=== PATIENT | female | born 1965 | race Caucasian/White ===

== ENCOUNTER 2017-05-31 10:41 | Inpatient (IN) | payer OTHER ==
[2017-05-31 11:24] VITALS: BMI 24.8
--- NOTE | 2017-05-31 14:46 | HP ---
CIWA Score - CIWA Score Nausea/Vomitin Muscle Tremors: 3 Anxiety: 3 Agitation: 3 Paroxysmal Sweats: 2 Orientation: 0-Oriented Tacttile Disturbances: 2-Mild Itch/Numbness/Burn Auditory Disturbances: 2-Mild Harshness/Frighten Visual Disturbances: 2-Mild Sensitivity Headache: 2-Mild CIWA-Ar Total Score: 22 Admission ROS BHS - HPI Chief Complaint: i need help to stop drinking alcohol,klonopin,hero in,mmtp 50 mgs/day,last medicated today manic depressive bipolar disorder mass of right lung ,had biopsy done in [facility],follow up with [facility] nicotine dependence multiple admissions in detox,last detox 03/11/16 to 03/26/16 longest period of sobriety 6 months Allergies/Adverse Reactions: Allergies Allergy/AdvReac Type Severity Reaction Status Date / Time No Known Allergies Allergy Verified 05/31/17 16:09 History of Present Illness: this 52 years old female with alcohol,klonopin dependence,heroin abused,mmtp 50 mgs/day for detox as mentioned above need help for detox Exam Limitations: No Limitations - Ebola screening Have you traveled outside of the country in the last 21 days: No Have you had contact with anyone from an Ebola affected area: No Have you been sick,other than usual withdrawal symptoms: No Do you have a fever: No - Review of Systems Constitutional: Loss of Appetite, Night Sweats, Changes in sleep, Weakness EENT: reports: No Symptoms Reported, Nose Congestion (copd mass in right upper lobe of right lung since 11/24 had biopoy and follow up with pmd dr mares in [facility]) Respiratory: reports: Other (copd on albuterol inhaler mass of right lung in right upper lobe had biopsy and follow up with [facility]) Cardiac: reports: No Symptoms Reported GI: reports: Diarrhea, Nausea, Poor Appetite, Abdominal cramping : reports: No Symptoms Reported Musculoskeletal: reports: Back Pain, Muscle Pain Integumentary: reports: Dryness Neuro: reports: Headache, Tremors Endocrine: reports: No Symptoms Reported Hematology: reports: No Symptoms Reported Psychiatric: reports: No Sypmtoms Reported, Judgement Intact, Mood/Affect Appropiate, other (bipolar disoder) Patient History - Patient Medical History Hx Anemia: No Hx Asthma: No Hx Chronic Obstructive Pulmonary Disease (COPD): Yes (on albuterol inhaler) Hx Cancer: No Hx Cardiac Disorders: No Hx Congestive Heart Failure: No Hx Hypertension: No Hx Hypercholesterolemia: No Hx Pacemaker: No HX Cerebrovascular Accident: No Hx Seizures: No Hx Dementia: No Hx Diabetes: No Hx Gastrointestinal Disorders: No Hx Liver Disease: No Hx Genitourinary Disorders: No Hx Sexually Transmitted Disorders: No Hx Renal Disease (ESRD): No Hx Thyroid Disease: No Hx Human Immunodeficiency Virus (HIV): No (negative last 05/24/17) Hx Hepatitis C: Yes (follow up with pmd) Hx Depression: Yes Hx Suicide Attempt: Yes (CUT LEFT WRIST,overdose 2002; denies any S/H ideation) Hx Bipolar Disorder: Yes Hx Schizophrenia: No Other Medical History: no suicidal,no homicidal - Patient Surgical History Past Surgical History: Yes Hx Neurologic Surgery: No Hx Cataract Extraction: No Hx Cardiac Surgery: No Hx Lung Surgery: No Hx Breast Surgery: No Hx Breast Biopsy: No Hx Abdominal Surgery: No Hx Appendectomy: No Hx Cholecystectomy: No Hx Genitourinary Surgery: No Hx Section: No Hx Orthopedic Surgery: Yes (torn minuscus left knee/3 disc herniation) Other Surgical History: SURGERY OF NOSE FOR FX AT AGE OF 4 YEAR Anesthesia Reaction: Yes - PPD History Previous Implant?: Yes Documented Results: Negative w/o proof Date: 07/01/15 Results: 0mm PPD to be Administered?: Yes - Reproductive History Patient is a Female of Child Bearing Age (11 -55 yrs old): Yes Last Menstrual Period: 07/15/16 Patient : No - Smoking Cessation Smoking history: Current every day smoker Have you smoked in the past 12 months: Yes Aproximately how many cigarettes per day: 6 Cigars Per Day: 0 Hx Chewing Tobacco Use: No Initiated information on smoking cessation: Yes 'Breaking Loose' booklet given: 05/31/17 - Substance & Tx. History Hx Alcohol Use: Yes Substance Use Type: Heroin, Tranquilizers Hx Substance Use Treatment: Yes ([facility] 06/21/16 to 03/26/16) - Substances Abused Alcohol Route: Oral Frequency: Daily Amount used: 1 paint of vodka/2 of 16 ozs of beer Age of first use: 13 Date of Last Use: 05/31/17 Benzodiazepine (Klonopin) Route: Oral Frequency: Daily Amount used: 2 mgs Age of first use: 49 Date of Last Use: 05/31/17 Heroin Route: Injection Frequency: 1-2 times per week Amount used: 2 bags Age of first use: 30 Date of Last Use: 05/30/17 Family Disease History - Family Disease History Family Disease History: Other: Father (DSA), Mother (DSA) Admission Physical Exam S - Vital Signs Vital Signs: Vital Signs - 24 hr 05/31/17 11:22 Temperature 98.6 F Pulse Rate 62 Respiratory 18 Rate Blood Pressure 103/67 - Physical General Appearance: Yes: Moderate Distress, Tremorous, Irritable, Sweating, Anxious HEENTM: Yes: Normal ENT Inspection, KATHYA, Pharynx Normal, Tm's normal Respiratory: Yes: Lungs Clear, Normal Breath Sounds, No Respiratory Distress Neck: Yes: Within Normal Limits, Supple, Trachea in good position Breast: Yes: Breast Exam Deferred Cardiology: Yes: Within Normal Limits, Regular Rhythm, Regular Rate, S1, S2 Abdominal: Yes: Within Normal Limits, Normal Bowel Sounds, Non Tender, Flat, Soft Genitourinary: Yes: Within Normal Limits Back: Yes: Within Normal Limits, Normal Inspection, Muscle Spasm Musculoskeletal: Yes: Back pain, Muscle Pain Extremities: Yes: Within Normal Limits, Normal Range of Motion, Tremors Neurological: Yes: 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 intact, Fully Oriented, Alert, Motor Strength 5/5 Integumentary: Yes: Dry Lymphatic: Yes: Within Normal Limits - Diagnostic (1) Alcohol dependence with uncomplicated withdrawal Current Visit: No Status: Acute (2) Uncomplicated sedative, hypnotic, or anxiolytic withdrawal Current Visit: Yes Status: Acute (3) Opioid dependence Current Visit: No Status: Acute (4) Methadone maintenance therapy patient Current Visit: Yes Status: Acute (5) COPD (chronic obstructive pulmonary disease) Current Visit: Yes Status: Acute (6) Hepatitis C Current Visit: Yes Status: Acute (7) CELLULITIS OF RIGHT FOREARM Current Visit: No Status: Acute (8) Low back pain Current Visit: No Status: Chronic Qualifiers: Chronicity: chronic Back pain laterality: unspecified Sciatica presence: without sciatica Qualified Code(s): M54.5 - Low back pain (9) Nicotine dependence Current Visit: No Status: Chronic Qualifiers: Nicotine product type: cigarettes Substance use status: uncomplicated Qualified Code(s): F17.210 - Nicotine dependence, cigarettes, uncomplicated (10) Cellulitis of both feet Current Visit: Yes Status: Acute (11) Derangement of medial meniscus of left knee due to old injury Current Visit: Yes Status: Acute (12) Mass of right lung Current Visit: Yes Status: Acute (13) Bipolar disorder Current Visit: No Status: Suspected Cleared for Admission [facility] - Detox or Rehab [facility] Level of Care: Medically Managed Detox Regimen/Protocol: Librium [facility] Breath Alcohol Content Breath Alcohol Content: 0.34 Urine Pregancy Test - Result Urine Test Results: Negative- NO Line Present Urine Drug Screen - Results Drug Screen Negative: No Urine Drug Screen Results: BEATRIZ-Cocaine, OPI-Opiates, BZO-Benzodiazepines, MTD- Methadone
[2017-05-31] MEDS ORDERED: MAGNESIUM HYDROX 2400MG/30ML ORAL SUSPENSION 30 ML CUP PO PRN (15:17)
[2017-05-31] MEDS ORDERED: LOPERAMIDE HCL 2 MG CAPSULE PO PRN (15:17)
[2017-05-31] MEDS ORDERED: chlordiazePOXIDE HCL 25 MG CAPSULE PO PRN (15:17)
[2017-05-31] MEDS ORDERED: P-EPHED 60MG/TRIPROLIDI 2.5MG TABLET PO PRN (15:17)
[2017-05-31] MEDS ORDERED: MAG HYDROX/AL HYDROX/SIMETH 30 ML UNIT-DOSE CUP PO PRN (15:17)
[2017-05-31] MEDS ORDERED: MAGNESIUM CITRATE 300 ML BOTTLE PO PRN (15:17)
[2017-05-31] MEDS ORDERED: chlordiazePOXIDE HCL 25 MG CAPSULE PO ONE (15:17)
[2017-05-31] MEDS ORDERED: guaiFENesin/D-METHORPHAN HB 10 ML UNIT-DOSE CUPS PO PRN (15:17)
[2017-05-31] MEDS ORDERED: MENTHOL/PHENOL 1 EACH UD MM PRN (15:17)
[2017-05-31] MEDS ORDERED: ACETAMINOPHEN 325 MG TABLET (FP) PO PRN (15:17)
[2017-05-31] MEDS ORDERED: ALBUTEROL SO4 6.7 GM HFA INHALER IH PRN (15:23)
[2017-05-31] MEDS: chlordiazePOXIDE HCL 25 MG CAPSULE PO SCH ×2 (17:44→22:34)
[2017-05-31] MEDS: NICOTINE 14 MG/24 HOURS TOPICAL PATCH TD SCH (17:59)
[2017-05-31 20:16] LABS: URINE APPEARANCE SLCLOUDY; URINE BILIRUBIN NEGATIVE (NEGATIVE); URINE BLOOD NEGATIVE (NEGATIVE); URINE COLOR YELLOW; URINE GLUCOSE (UA) NEGATIVE (NEGATIVE); URINE KETONE NEGATIVE (NEGATIVE); URINE NITRITE NEGATIVE (NEGATIVE); URINE PROTEIN NEGATIVE (NEGATIVE); URINE UROBILINOGEN NEGATIVE mg/dL (0.2-1.0)
[2017-05-31 20:17] LABS: URINE LEUK ESTERASE 3+ (NEGATIVE)
[2017-05-31 21:15] LABS: URINE BACTERIA RARE /hpf (NONE SEEN); URINE MUCUS RARE; URINE RBC 2 /hpf (0-3); URINE WBC 4 /hpf (3-5)
[2017-05-31] MEDS: PATIENT'S OWN MEDICATION (NON-FORMULARY) (Clindamycin [Cleocin -] 300 MG) PO SCH (22:34)
[2017-05-31] MEDS: THIAMINE HCL 100 MG TABLET (FP) PO SCH (22:34)
[2017-06-01] MEDS: METHADONE HCL 10 MG TABLET PO SCH (06:12)
[2017-06-01] MEDS: chlordiazePOXIDE HCL 25 MG CAPSULE PO SCH ×4 (06:12→22:32)
[2017-06-01] MEDS: PATIENT'S OWN MEDICATION (NON-FORMULARY) (Clindamycin [Cleocin -] 300 MG) PO SCH ×3 (06:13→22:32)
[2017-06-01 09:41] LABS: MCH 30.4 pg (25.7-33.7); MCHC 32.8 g/dl (32.0-36.0); MEAN CELL VOLUME 92.7 fl (80-96); MEAN PLT VOLUME 9.2 fl (7.5-11.1); PLATELET COUNT 164 K/MM3 (134-434); RDW 13.2 % (11.6-15.6); WHITE BLOOD COUNT 5.8 K/mm3 (4.0-10.0)
[2017-06-01 09:50] LABS: ALBUMIN 3.1 g/dl (3.4-5.0); ANION GAP 8 (8-16); CALCIUM 8.3 mg/dL (8.5-10.1); CO2 26 mmol/L (21-32); GLUCOSE,RANDOM 105 mg/dL (74-106)
[2017-06-01 09:52] LABS: ALK PHOS 77 U/L (45-117); BILIRUBIN,TOTAL 0.2 mg/dL (0.2-1.0); CREATININE 0.7 mg/dL (0.55-1.02); SGPT/ALT 64 U/L (12-78); TOT PROT 6.7 g/dl (6.4-8.2)
[2017-06-01 09:53] LABS: SGOT/AST 66 U/L (15-37)
[2017-06-01] MEDS: NICOTINE 14 MG/24 HOURS TOPICAL PATCH TD SCH (10:53)
[2017-06-01] MEDS: PRENATAL VITAMINS W/ FOLIC ACID TABLET (FP) PO SCH (10:53)
[2017-06-01] MEDS: RANITIDINE HCL 150 MG TABLET (FP) PO SCH ×2 (11:00→22:32)
--- NOTE | 2017-06-01 11:53 | PN ---
S CIWA - CIWA Score Nausea/Vomitin Muscle Tremors: 3 Anxiety: 3 Agitation: 3 Paroxysmal Sweats: 1-Minimal Palms Moist Orientation: 0-Oriented Tacttile Disturbances: 1-Very Mild Itch/Numbness Auditory Disturbances: 1-Very Mild Visual Disturbances: 1-Very Mild Sensitivity Headache: 2-Mild CIWA-Ar Total Score: 18 S Progress Note (SOAP) Subjective: ALERT,IRRITABLE,ANXIOUS,INTERRUPTED SLEEP,TREMOR,PAIN IN THE BODY Objective: 06/01/17 11:51 Vital Signs Temperature 97.9 F 06/01/17 10:14 Pulse Rate 46 L 06/01/17 10:14 Respiratory Rate 18 06/01/17 10:14 Blood Pressure 103/66 06/01/17 10:14 O2 Sat by Pulse Oximetry (%) EKG SINUS BRADYCARDIA 51/MIN NO CHEST PAIN,NO SOB,NO Laboratory Last Values WBC 5.8 K/mm3 (4.0-10.0) 06/01/17 08:00 RBC 4.57 M/mm3 (3.60-5.2) 06/01/17 08:00 Hgb 13.9 GM/dL (10.7-15.3) 06/01/17 08:00 Hct 42.3 % (32.4-45.2) 06/01/17 08:00 MCV 92.7 fl (80-96) 06/01/17 08:00 MCH 30.4 pg (25.7-33.7) 06/01/17 08:00 MCHC 32.8 g/dl (32.0-36.0) 06/01/17 08:00 RDW 13.2 % (11.6-15.6) 06/01/17 08:00 Plt Count 164 K/MM3 (134-434) D 06/01/17 08:00 MPV 9.2 fl (7.5-11.1) 06/01/17 08:00 Sodium 139 mmol/L (136-145) 06/01/17 08:00 Potassium 4.2 mmol/L (3.5-5.1) 06/01/17 08:00 Chloride 105 mmol/L (98-107) 06/01/17 08:00 Carbon Dioxide 26 mmol/L (21-32) 06/01/17 08:00 Anion Gap 8 (8-16) 06/01/17 08:00 BUN 12 mg/dL (7-18) D 06/01/17 08:00 Creatinine 0.7 mg/dL (0.55-1.02) D 06/01/17 08:00 Creat Clearance w eGFR > 60 (>60) 06/01/17 08:00 Random Glucose 105 mg/dL (74-106) D 06/01/17 08:00 Calcium 8.3 mg/dL (8.5-10.1) L 06/01/17 08:00 Total Bilirubin 0.2 mg/dL (0.2-1.0) D 06/01/17 08:00 AST 66 U/L (15-37) H D 06/01/17 08:00 ALT 64 U/L (12-78) 06/01/17 08:00 Alkaline Phosphatase 77 U/L (45-117) 06/01/17 08:00 Total Protein 6.7 g/dl (6.4-8.2) 06/01/17 08:00 Albumin 3.1 g/dl (3.4-5.0) L 06/01/17 08:00 Urine Color Yellow 05/31/17 20:02 Urine Appearance Slcloudy 05/31/17 20:02 Urine pH 6.0 (5.0-8.0) 05/31/17 20:02 Ur Specific [place] 1.015 (1.005-1.025) 05/31/17 20:02 Urine Protein Negative (NEGATIVE) 05/31/17 20:02 Urine Glucose (UA) Negative (NEGATIVE) 05/31/17 20:02 Urine Ketones Negative (NEGATIVE) 05/31/17 20:02 Urine Blood Negative (NEGATIVE) 05/31/17 20:02 Urine Nitrite Negative (NEGATIVE) 05/31/17 20:02 Urine Bilirubin Negative (NEGATIVE) 05/31/17 20:02 Urine Urobilinogen Negative mg/dL (0.2-1.0) 05/31/17 20:02 Ur Leukocyte Esterase 3+ (NEGATIVE) H 05/31/17 20:02 Urine RBC 2 /hpf (0-3) 05/31/17 20:02 Urine WBC 4 /hpf (3-5) 05/31/17 20:02 Ur Epithelial Cells Rare /hpf (FEW) 05/31/17 20:02 Urine Bacteria Rare /hpf (NONE SEEN) 05/31/17 20:02 Urine Mucus Rare 05/31/17 20:02 DIZZINESS Assessment: 06/01/17 11:53 WITHDRAWAL SYMPTOM Plan: CONTINUE DETOX
--- NOTE | 2017-06-01 12:56 | EKG ---
Test Reason : Blood Pressure : / mmHG Vent. Rate : 051 BPM Atrial Rate : 051 BPM P-R Int : 138 ms QRS Dur : 080 ms QT Int : 476 ms P-R-T Axes : 062 046 042 degrees QTc Int : 438 ms SINUS BRADYCARDIA POSSIBLE LEFT ATRIAL ENLARGEMENT POOR R WAVE PROGRESSION NO PREVIOUS ECGS AVAILABLE Confirmed by MD DREA, MOLINA ([id number]) on 06/01/2017 12:56:08 PM Referred By: Odilon Betancourt Confirmed By:MOLINA SHEPARD MD
--- NOTE | 2017-06-01 17:58 | CONSULT ---
[facility] Psychiatric Consult - Data Date of interview: 06/01/17 Admission source: [facility] Identifying data: Readmission to [facility] for this 52 y/o female seeking detox treatment on for heroin,alcohol and benzodiazepine dependence.Patient is single without children,domiciled,unemployed and supported on Public Assistance. Substance Abuse History: Discussed with patient in this interview.Ms Mckinney confirms this report. Smoking Cessation. Smoking history: Current every day smoker. Have you smoked in the past 12 months: Yes. Aproximately how many cigarettes per day: 6. Cigars Per Day: 0. Hx Chewing Tobacco Use: No. Initiated information on smoking cessation: Yes. 'Breaking Loose' booklet given : 05/31/17. - Substance & Tx. History. Hx Alcohol Use: Yes. Substance Use Type: Heroin, Tranquilizers. Hx Substance Use Treatment: Yes ([facility] 06/21/16 to 03/26/16). - Substances Abused. Alcohol. Route: Oral. Frequency: Daily. Amount used: 1 paint of vodka/2 of 16 ozs of beer. Age of first use: 13. Date of Last Use: 05/31/17. Benzodiazepine (Klonopin). Route: Oral. Frequency: Daily. Amount used: 2 mgs. Age of first use: 49. Date of Last Use: 05/31/17. Heroin. Route: Injection. Frequency: 1-2 times per week. Amount used: 2 bags. Age of first use: 30. Date of Last Use: 05/30/17 Medical History: Remarkable for a history of seizure disorder,hepatitis C,lower back pain,three herniated disks,COPD and mass located in the right lung (upper lobe).Noted additional history of orthosurgery for torn meniscus (left knee) and a distant account of surgical repair of fracture of nasal bones (age [age]). Psychiatric History: Ms Mckinney admits to a history of multiple psychiatric hospitalizations.She is known to [facility] and [facility].Diagnosed with Bipolar Disorder and Borderline Personality Disorder.Patient reports chronic non- adherence to OPD care.Last saw her psychiatrist,Dr Araujo,in October 2016 (self -report).Used to be on latuda and lithium (last script issued in September 2016 as per pharmacy claims).Currently on methadone maintenance (50 mg/day) at the [facility] program ([facility]) in [facility].Patient endorses a remote history of suicide attempts (wrist-cutting and overdose with drugs). Physical/Sexual Abuse/Trauma History: Patient denies. Additional Comment: Urine Drug Screen Results: BEATRIZ-Cocaine, OPI-Opiates, BZO- Benzodiazepines, MTD-Methadone.Noted. Mental Status Exam - Mental Status Exam Alert and Oriented to: Time, Place, Person Cognitive Function: Good Patient Appearance: Well Groomed Mood: Hopeful, Euthymic Affect: Appropriate, Normal Range Patient Behavior: Appropriate, Cooperative Speech Pattern: Clear Voice Loudness: Normal Thought Process: Intact, Goal Oriented Thought Disorder: Not Present Hallucinations: Denies Suicidal Ideation: Denies Homicidal Ideation: Denies Insight/Judgement: Poor Sleep: Poorly, Difficulty falling asleep Appetite: Good Muscle strength/Tone: Normal Gait/Station: Normal Psychiatric Findings - Problem List ([place] 1, 2,3) (1) Alcohol dependence with uncomplicated withdrawal Current Visit: Yes Status: Acute (2) Opioid dependence on agonist therapy Current Visit: Yes Status: Acute (3) Uncomplicated sedative, hypnotic, or anxiolytic withdrawal Current Visit: Yes Status: Acute (4) Cocaine dependence Current Visit: Yes Status: Acute Qualifiers: Substance use status: uncomplicated Qualified Code(s): F14.20 - Cocaine dependence, uncomplicated (5) Nicotine dependence Current Visit: Yes Status: Acute Qualifiers: Nicotine product type: cigarettes Substance use status: uncomplicated Qualified Code(s): F17.210 - Nicotine dependence, cigarettes, uncomplicated (6) Drug-induced mood disorder Current Visit: Yes Status: Acute (7) Borderline personality disorder Current Visit: Yes Status: Chronic Comment: Self-report. (8) Bipolar disorder Current Visit: Yes Status: Chronic Comment: As per records. (9) COPD (chronic obstructive pulmonary disease) Current Visit: Yes Status: Chronic (10) Derangement of medial meniscus of left knee due to old injury Current Visit: Yes Status: Chronic (11) Hepatitis C Current Visit: Yes Status: Chronic (12) Mass of right lung Current Visit: Yes Status: Chronic (13) Insomnia Current Visit: Yes Status: Acute - Initial Treatment Plan Initial Treatment Plan: Psychoeducation is provided in this session.Detoxification.Patient is confronted about discrepancies in self-report about medications + pattern of compliance.She admits to an extended period of non-adherence (months) but she expresses interest in resuming latuda in this hospital course.Will resume latuda at 40 mg po daily.Side effects/benefits discussed with the patient.Ms Mckinney consents to follow this plan of care.She indicates her intention to get back to Dr Mora for OPD follow up.Observation.
[2017-06-01] MEDS: THIAMINE HCL 100 MG TABLET (FP) PO SCH (22:32)
[2017-06-02] MEDS: diphenhydrAMINE HCL 50 MG CAPSULE PO PRN (02:00)
[2017-06-02] MEDS: hydrOXYzine PAMOATE 50 MG CAPSULE (FP) PO PRN (04:31)
[2017-06-02] MEDS: IBUPROFEN 400 MG TABLET (FP) PO PRN (04:33)
[2017-06-02] MEDS: chlordiazePOXIDE HCL 25 MG CAPSULE PO SCH ×2 (06:05→11:05)
[2017-06-02] MEDS: METHADONE HCL 10 MG TABLET PO SCH (06:05)
[2017-06-02] MEDS: PATIENT'S OWN MEDICATION (NON-FORMULARY) (Clindamycin [Cleocin -] 300 MG) PO SCH ×3 (06:06→22:21)
[2017-06-02] MEDS: LURASIDONE HCL 40 MG TABLET PO SCH (11:00)
[2017-06-02] MEDS: RANITIDINE HCL 150 MG TABLET (FP) PO SCH ×2 (11:04→22:21)
[2017-06-02] MEDS: PRENATAL VITAMINS W/ FOLIC ACID TABLET (FP) PO SCH (11:05)
[2017-06-02] MEDS: NICOTINE 14 MG/24 HOURS TOPICAL PATCH TD SCH (11:07)
--- NOTE | 2017-06-02 13:53 | PN ---
S CIWA - CIWA Score Nausea/Vomitin Muscle Tremors: 3 Anxiety: 3 Agitation: 3 Paroxysmal Sweats: No Perspiration Orientation: 0-Oriented Tacttile Disturbances: 1-Very Mild Itch/Numbness Auditory Disturbances: 1-Very Mild Visual Disturbances: 1-Very Mild Sensitivity Headache: 2-Mild CIWA-Ar Total Score: 16 S Progress Note (SOAP) Subjective: alert,irritable,anxious,interrupted sleep,pain in the body , back,both feet, erythema both feet is less Objective: 06/02/17 13:52 Vital Signs Temperature 97.7 F 06/02/17 10:00 Pulse Rate 43 L 06/02/17 10:00 Respiratory Rate 16 06/02/17 10:00 Blood Pressure 108/49 06/02/17 10:00 O2 Sat by Pulse Oximetry (%) Laboratory Last Values WBC 5.8 K/mm3 (4.0-10.0) 06/01/17 08:00 RBC 4.57 M/mm3 (3.60-5.2) 06/01/17 08:00 Hgb 13.9 GM/dL (10.7-15.3) 06/01/17 08:00 Hct 42.3 % (32.4-45.2) 06/01/17 08:00 MCV 92.7 fl (80-96) 06/01/17 08:00 MCH 30.4 pg (25.7-33.7) 06/01/17 08:00 MCHC 32.8 g/dl (32.0-36.0) 06/01/17 08:00 RDW 13.2 % (11.6-15.6) 06/01/17 08:00 Plt Count 164 K/MM3 (134-434) D 06/01/17 08:00 MPV 9.2 fl (7.5-11.1) 06/01/17 08:00 Sodium 139 mmol/L (136-145) 06/01/17 08:00 Potassium 4.2 mmol/L (3.5-5.1) 06/01/17 08:00 Chloride 105 mmol/L (98-107) 06/01/17 08:00 Carbon Dioxide 26 mmol/L (21-32) 06/01/17 08:00 Anion Gap 8 (8-16) 06/01/17 08:00 BUN 12 mg/dL (7-18) D 06/01/17 08:00 Creatinine 0.7 mg/dL (0.55-1.02) D 06/01/17 08:00 Creat Clearance w eGFR > 60 (>60) 06/01/17 08:00 Random Glucose 105 mg/dL (74-106) D 06/01/17 08:00 Calcium 8.3 mg/dL (8.5-10.1) L 06/01/17 08:00 Total Bilirubin 0.2 mg/dL (0.2-1.0) D 06/01/17 08:00 AST 66 U/L (15-37) H D 06/01/17 08:00 ALT 64 U/L (12-78) 06/01/17 08:00 Alkaline Phosphatase 77 U/L (45-117) 06/01/17 08:00 Total Protein 6.7 g/dl (6.4-8.2) 06/01/17 08:00 Albumin 3.1 g/dl (3.4-5.0) L 06/01/17 08:00 Urine Color Yellow 05/31/17 20:02 Urine Appearance Slcloudy 05/31/17 20:02 Urine pH 6.0 (5.0-8.0) 05/31/17 20:02 Ur Specific [place] 1.015 (1.005-1.025) 05/31/17 20:02 Urine Protein Negative (NEGATIVE) 05/31/17 20:02 Urine Glucose (UA) Negative (NEGATIVE) 05/31/17 20:02 Urine Ketones Negative (NEGATIVE) 05/31/17 20:02 Urine Blood Negative (NEGATIVE) 05/31/17 20:02 Urine Nitrite Negative (NEGATIVE) 05/31/17 20:02 Urine Bilirubin Negative (NEGATIVE) 05/31/17 20:02 Urine Urobilinogen Negative mg/dL (0.2-1.0) 05/31/17 20:02 Ur Leukocyte Esterase 3+ (NEGATIVE) H 05/31/17 20:02 Urine RBC 2 /hpf (0-3) 05/31/17 20:02 Urine WBC 4 /hpf (3-5) 05/31/17 20:02 Ur Epithelial Cells Rare /hpf (FEW) 05/31/17 20:02 Urine Bacteria Rare /hpf (NONE SEEN) 05/31/17 20:02 Urine Mucus Rare 05/31/17 20:02 RPR Titer Nonreactive (NONREACTIVE) 06/01/17 08:00 Assessment: 06/02/17 13:53 withdrawal symptom Plan: continue detox
[2017-06-02] MEDS: chlordiazePOXIDE 5 MG CAPSULE PO SCH ×2 (17:40→22:21)
[2017-06-02] MEDS: THIAMINE HCL 100 MG TABLET (FP) PO SCH (22:21)
[2017-06-03] MEDS: IBUPROFEN 400 MG TABLET (FP) PO PRN (01:50)
[2017-06-03] MEDS: METHADONE HCL 10 MG TABLET PO SCH (05:55)
[2017-06-03] MEDS: chlordiazePOXIDE 5 MG CAPSULE PO SCH ×2 (05:57→10:56)
[2017-06-03] MEDS: PATIENT'S OWN MEDICATION (NON-FORMULARY) (Clindamycin [Cleocin -] 300 MG) PO SCH ×3 (05:57→22:11)
--- NOTE | 2017-06-03 10:31 | PN ---
S Progress Note (SOAP) Subjective: ALERT,IRRITABLE,ANXIOUS,INTERRUPTED SLEEP Objective: 06/03/17 10:30 Vital Signs Temperature 97.7 F 06/03/17 10:00 Pulse Rate 61 06/03/17 10:00 Respiratory Rate 18 06/03/17 10:00 Blood Pressure 103/62 06/03/17 10:00 O2 Sat by Pulse Oximetry (%) Assessment: 06/03/17 10:30 WITHDRAWAL SYMPTOM Plan: CONTINUE DETOX,DISCHARGE IN AM
[2017-06-03] MEDS: PRENATAL VITAMINS W/ FOLIC ACID TABLET (FP) PO SCH (10:56)
[2017-06-03] MEDS: RANITIDINE HCL 150 MG TABLET (FP) PO SCH ×2 (10:56→22:11)
[2017-06-03] MEDS: NICOTINE 14 MG/24 HOURS TOPICAL PATCH TD SCH (10:57)
[2017-06-03] MEDS: LURASIDONE HCL 40 MG TABLET PO SCH (10:57)
[2017-06-03] MEDS: chlordiazePOXIDE HCL 10 MG CAPSULE PO SCH ×2 (17:21→22:11)
[2017-06-03] MEDS: THIAMINE HCL 100 MG TABLET (FP) PO SCH (22:12)
[2017-06-04] MEDS: hydrOXYzine PAMOATE 50 MG CAPSULE (FP) PO PRN (00:52)
[2017-06-04] MEDS: diphenhydrAMINE HCL 50 MG CAPSULE PO PRN (02:00)
[2017-06-04] MEDS: PATIENT'S OWN MEDICATION (NON-FORMULARY) (Clindamycin [Cleocin -] 300 MG) PO SCH (05:21)
[2017-06-04] MEDS: METHADONE HCL 10 MG TABLET PO SCH (05:22)
[2017-06-04] MEDS: chlordiazePOXIDE HCL 10 MG CAPSULE PO SCH (05:22)
--- NOTE | 2017-06-04 08:46 | PN ---
S Progress Note (SOAP) Subjective: alert,no complaint Objective: 06/04/17 08:34 Vital Signs Temperature 97.5 F L 06/04/17 06:24 Pulse Rate 50 L 06/04/17 06:24 Respiratory Rate 16 06/04/17 06:24 Blood Pressure 119/66 06/04/17 06:24 O2 Sat by Pulse Oximetry (%) Assessment: 06/04/17 08:35 detox completed,no withdrawal symptom Plan: patient refused chest x ray to day for positive ppd,[facility],had mass in right lung had biopsy ,follow up with [facility] sample
--- NOTE | 2017-06-04 08:52 | DS ---
[facility] Detox Discharge Summary Admission Date: 05/31/17 Discharge Date: 06/04/17 - History Present History: Alcohol Dependence, Opioid Dependence, Sedative Dependence, MMTP Additional Comments: follow up with after care program as arrangement,follow up with pmd and digital product specialist at [facility] as appointment Pertinent Past History: copd hepatitis c cellulitis both feet and right forearm mass of right lung low back pain - Physical Exam Results Vital Signs: Vital Signs Temperature 97.5 F L 06/04/17 06:24 Pulse Rate 50 L 06/04/17 06:24 Respiratory Rate 16 06/04/17 06:24 Blood Pressure 119/66 06/04/17 06:24 O2 Sat by Pulse Oximetry (%) Pertinent Admission Physical Exam Findings: withdrawal symptom - Treatment Hospital Course: Detox Protocol Followed, Detoxed Safely, Responded well, Discharged Condition Good - Medication Discharge Medications: Ambulatory Orders Lurasidone HCl [Latuda -] 40 mg PO DAILY 05/31/17 Lurasidone HCl [Latuda] 40 mg PO DAILY #30 tablet 06/01/17 Clindamycin [Cleocin -] 300 mg PO TID #20 cap 06/03/17 - Diagnosis (1) Alcohol dependence with uncomplicated withdrawal Current Visit: Yes Status: Acute (2) Uncomplicated sedative, hypnotic, or anxiolytic withdrawal Current Visit: Yes Status: Acute (3) Opioid dependence Current Visit: No Status: Acute (4) Methadone maintenance therapy patient Current Visit: Yes Status: Acute (5) COPD (chronic obstructive pulmonary disease) Current Visit: Yes Status: Chronic (6) Hepatitis C Current Visit: Yes Status: Chronic (7) CELLULITIS OF RIGHT FOREARM Current Visit: No Status: Acute (8) Low back pain Current Visit: No Status: Chronic Qualifiers: Chronicity: chronic Back pain laterality: unspecified Sciatica presence: without sciatica Qualified Code(s): M54.5 - Low back pain (9) Nicotine dependence Current Visit: Yes Status: Acute Qualifiers: Nicotine product type: cigarettes Substance use status: uncomplicated Qualified Code(s): F17.210 - Nicotine dependence, cigarettes, uncomplicated (10) Cellulitis of both feet Current Visit: Yes Status: Acute (11) Derangement of medial meniscus of left knee due to old injury Current Visit: Yes Status: Chronic (12) Mass of right lung Current Visit: Yes Status: Chronic (13) Bipolar disorder Current Visit: Yes Status: Chronic - AMA Did Patient Leave Against Medical Advice: No
[2017-06-04 10:05] VITALS: BP 92/57; PULSE 73; TEMP 98.1
== END 2017-06-04 09:05 | disposition home or self-care (01) | DRG 773 ==
LOC: YASAS 10:41 → Y6N 16:28
PROVIDERS: ADMIT Internal Medicine; ATTEND Internal Medicine
PROC: HZ2ZZZZ Detoxification Services for Substance Abuse Treatment (ICD-10-PCS; principal; 2017-05-31)
DX: F10.230 Alcohol dependence with withdrawal, uncomplicated (principal); F11.20 Opioid dependence, uncomplicated; F13.20 Sedative, hypnotic or anxiolytic dependence, uncomplicated; F14.20 Cocaine dependence, uncomplicated; F17.210 Nicotine dependence, cigarettes, uncomplicated; F19.24 Other psychoactive substance dependence with psychoactive substance-induced mood disorder; F31.9 Bipolar disorder, unspecified; F60.3 Borderline personality disorder; G47.00 Insomnia, unspecified; J44.9 Chronic obstructive pulmonary disease, unspecified; B18.2 Chronic viral hepatitis C; L03.113 Cellulitis of right upper limb; L03.116 Cellulitis of left lower limb; L03.115 Cellulitis of right lower limb; M54.5 Low back pain; G89.29 Other chronic pain; R00.1 Bradycardia, unspecified; M23.8X2 Other internal derangements of left knee; R91.8 Other nonspecific abnormal finding of lung field; Z86.69 Personal history of other diseases of the nervous system and sense organs; Z91.5 Personal history of self-harm
CPT/HCPCS: 36415; 80053; 81003; 81015; 85027; 86593; 93005; 93010